=== PATIENT | male | born 1990 | race Caucasian/White ===

== ENCOUNTER → 2016-07-10 | Outpatient (REF) | payer OTHER | LOC: M LAB REF 19:35 | PROVIDERS: ATTEND Physician Assistant | DX: J02.9 Acute pharyngitis, unspecified (principal) ==

== ENCOUNTER 2016-08-30 11:38 | Emergency (ER) | payer BC, OTHER ==
[~2016-08-30] VITALS: Ht 180.3 cm; Wt 115.7 kg
[2016-08-30] MEDS ORDERED: ALLE25CA8 PO (12:05)
--- NOTE | 2016-08-30 14:07 | REP ---
SCROTAL ULTRASOUND: 08/30/2016: Clinical history: Scrotal pain and swelling mostly on the right. Sonographic evaluation shows the right testis 5.6 x 2.4 x 3.5 cm. Left testis is 4.9 x 2.6 x 3.2 cm. There are speckled echoes representing tiny calcifications in both testes. No evidence of torsion with Doppler tracing showing resistive index of 0.54 on the right and 0.47 on the left. There is just subtle hyperemia suggested on the right. CC diameter of epididymal head on the right is 8.4 mm and on the left 8 mm. No evidence of hydrocele. No varicocele. Impression: 1. 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 Some authorities believe this may be seen in patients who are at somewhat increased risk for development of testicular mass, certainly none at this time. 2. Slight hyperemia on the right but both testes show normal Doppler tracings and blood flow adequate. No evidence of torsion. Mild orchitis cannot be excluded on the right. 3. The epididymal heads measure 8.4 mm on right, 8 mm left. No cyst. No hydrocele. No varicocele. Signed by Moi Deleon MD 08/30/2016 08:28 P
[2016-08-30] MEDS ORDERED: IBUP600T26 PO (14:30)
[2016-08-30] MEDS ORDERED: DOXY-278 PO (14:30)
[2016-08-30] MEDS ORDERED: cefTRIAXone SOD 250 MG VIAL (J0696) IM ONE (14:30)
[2016-08-30 15:16] VITALS: BP 141/84
== END 2016-08-30 15:20 | disposition home or self-care (01) ==
LOC: M ED 14:14
DX: N45.2 Orchitis (principal); J30.2 Other seasonal allergic rhinitis
CPT/HCPCS: 76870; 87086; 87491; 87591; 93976; 96372; 99282; J0696

== ENCOUNTER 2020-11-22 19:30 | Emergency (ER) | payer BC, OTHER ==
[~2020-11-22] VITALS: Ht 180.3 cm; Wt 108.6 kg
[~2020-11-22 19:30] MED LIST: ALLE25CA8 PO; DOXY-350 PO; IBUP-1022 PO
[2020-11-22] MEDS ORDERED: VIIB20TA PO (19:36)
--- NOTE | 2020-11-22 22:04 | REPVR ---
PROCEDURE INFORMATION: Exam: US Scrotum Exam date and time: 11/22/2020 9:50 PM Age: 30 years old Clinical indication: Scrotum pain; Additional info: Testicular pain TECHNIQUE: Imaging protocol: Real-time ultrasound of the scrotum and contents with color Doppler and image documentation. COMPARISON: Scrotal, US 08/30/2016 1:15 PM FINDINGS: Right testicle: The right testicle measures 5.5 cm in length by 2.7 cm in thickness and there are scattered microcalcifications. There is vascular flow of the right testicle with no evidence of torsion. The right epididymis measures 1 cm. Left testicle: The left testicle measures 4.7 cm in length by 2.7 cm in thickness and there are scattered microcalcifications. There is vascular flow of the left testicle with no evidence of torsion. The head of the epididymis on the left measures 1 cm and there is a 5 mm cyst. IMPRESSION: Normal appearing scrotal ultrasound. Electronically signed by: Gokul Clement On 11/22/2020 22:04:13 PM
[2020-11-22 23:02] VITALS: BP 148/86
[2020-11-22 23:17] LABS: GC DNA AMPLIFICATION NEGATIVE (NEGATIVE)
== END 2020-11-22 23:10 | disposition home or self-care (01) ==
LOC: M ED 19:30
DX: N50.819 Testicular pain, unspecified (principal); N50.3 Cyst of epididymis; N50.89 Other specified disorders of the male genital organs